=== PATIENT | female | born 1960 | race Two or more races ===

== ENCOUNTER 2020-04-06 07:14 | Inpatient (IN) | payer OTHER ==
[2020-04-01 12:55] VITALS: BMI 23.4
[2020-04-06] MEDS ORDERED: MIDAZOLAM HCL 2 MG/2 ML SINGLE DOSE VIAL ONE ×2 (07:18→09:40)
[2020-04-06] MEDS ORDERED: SODIUM CHLORIDE 0.9% P/F 10 ML VIAL IJ ONE (07:18)
[2020-04-06] MEDS ORDERED: BUPIVACAINE LIPOSOME/PF (EXPAREL) 266 MG/20 ML VIAL ONE (07:18)
[2020-04-06] MEDS ORDERED: BENZOIN/ALOE VERA/STORAX/TOLU 58 ML BOTTLE ONE (07:58)
[2020-04-06] MEDS ORDERED: BUPIVACAINE HCL/PF 0.5% (5MG/ML) 10 ML VIAL ONE (08:54)
[2020-04-06] MEDS ORDERED: PROPOFOL 20 ML ONE ×2 (09:11)
[2020-04-06] MEDS ORDERED: LIDOCAINE HCL/PF 2% SDV 5ML VIAL ONE (11:16)
[2020-04-06] MEDS ORDERED: ceFAZolin SODIUM 1 GM VIAL ONE ×2 (11:16→11:41)
[2020-04-06] MEDS ORDERED: VANCOMYCIN 1,000 MG VIAL (RESTRICTED TO ID ONLY) ONE (11:16)
[2020-04-06] MEDS ORDERED: DEXAMETHASONE SOD PHOSPHATE 4 MG/1 ML VIAL ONE (11:16)
[2020-04-06] MEDS ORDERED: TRANEXAMIC ACID 1000 MG/10 ML VIAL ONE (11:16)
[2020-04-06] MEDS ORDERED: ONDANSETRON 4 MG/2 ML VIAL ONE (11:16)
[2020-04-06] MEDS ORDERED: MAGNESIUM HYDROX 2400MG/30ML ORAL SUSPENSION 30 ML CUP PO PRN (12:07)
[2020-04-06] MEDS ORDERED: MAG HYDROX/AL HYDROX/SIMETH 30 ML UNIT-DOSE CUP PO PRN (12:07)
[2020-04-06] MEDS ORDERED: ONDANSETRON 4 MG/2 ML VIAL IVPUSH PRN (12:07)
[2020-04-06] MEDS ORDERED: LACTATED RINGERS SOLUTION 1,000 ML IV SCH (12:15)
[2020-04-06] MEDS: oxyCODONE HCL 5 MG TABLET PO PRN ×3 (15:39→23:23)
[2020-04-06] MEDS: CEFAZOLIN 2 GM/D5W 2 GM/50 ML ML IVPB SCH ×2 (17:43→23:23)
[2020-04-06] MEDS: ASPIRIN COATED 81 MG TABLET.EC PO SCH (21:13)
[2020-04-06] MEDS: CELECOXIB 200 MG CAPSULE PO SCH (21:13)
[2020-04-06] MEDS: SENNOSIDES/DOCUSATE COMBO (SENNA PLUS) TABLET (UD) PO SCH (21:13)
[2020-04-07] MEDS: oxyCODONE HCL 5 MG TABLET PO PRN ×6 (03:21→20:25)
[2020-04-07] MEDS: CEFAZOLIN 2 GM/D5W 2 GM/50 ML ML IVPB SCH (05:00)
[2020-04-07 08:54] LABS: MCHC 34.1 g/dl (32.0-36.0)
[2020-04-07 08:57] LABS: HEMATOCRIT 33.1 % (32.4-45.2); HEMOGLOBIN 11.3 GM/dl (10.7-15.3); MCH 31.1 pg (25.7-33.7); MEAN CELL VOLUME 91.2 fl (80-96); MEAN PLT VOLUME 8.4 fl (7.5-11.1); PLATELET COUNT 308 K/MM3 (134-434); RBC 3.63 M/mm3 (3.60-5.2); RDW 12.4 % (11.6-15.6)
[2020-04-07 08:58] LABS: CALCIUM 8.7 mg/dl (8.5-10); CREATININE 0.5 mg/dl (0.55-1.3); POTASSIUM 3.6 mmol/L (3.5-5.1)
[2020-04-07] MEDS: PANTOPRAZOLE 40 MG TABLET PO SCH (09:37)
[2020-04-07] MEDS: ASPIRIN COATED 81 MG TABLET.EC PO SCH ×2 (09:37→21:23)
[2020-04-07] MEDS: SENNOSIDES/DOCUSATE COMBO (SENNA PLUS) TABLET (UD) PO SCH ×2 (09:37→21:23)
[2020-04-07] MEDS: ACETAMINOPHEN 325 MG TABLET (FP) PO PRN ×2 (09:37→20:28)
[2020-04-07] MEDS: CELECOXIB 200 MG CAPSULE PO SCH ×2 (09:37→21:23)
[2020-04-08] MEDS: ACETAMINOPHEN 325 MG TABLET (FP) PO PRN (05:50)
[2020-04-08 08:18] LABS: HEMOGLOBIN 10.7 GM/dl (10.7-15.3); MCH 30.9 pg (25.7-33.7); MCHC 33.5 g/dl (32.0-36.0); MEAN CELL VOLUME 92.3 fl (80-96); MEAN PLT VOLUME 8.2 fl (7.5-11.1); PLATELET COUNT 281 K/MM3 (134-434); RBC 3.46 M/mm3 (3.60-5.2); RDW 12.6 % (11.6-15.6); WHITE BLOOD COUNT 7.7 K/mm3 (4.0-10.8)
[2020-04-08] MEDS: oxyCODONE HCL 5 MG TABLET PO PRN ×2 (09:14→12:11)
[2020-04-08] MEDS: PANTOPRAZOLE 40 MG TABLET PO SCH (09:14)
[2020-04-08] MEDS: ASPIRIN COATED 81 MG TABLET.EC PO SCH (09:14)
[2020-04-08] MEDS: CELECOXIB 200 MG CAPSULE PO SCH (09:14)
[2020-04-08] MEDS: SENNOSIDES/DOCUSATE COMBO (SENNA PLUS) TABLET (UD) PO SCH (09:17)
[2020-04-08 10:49] VITALS: BP 111/40; PULSE 82; TEMP 98.3
== END 2020-04-08 13:24 | disposition home or self-care (01) | DRG 302 ==
LOC: FM/S 07:14
PROVIDERS: ADMIT Orthopaedic Surgery Orthopaedic Surgery of the Spine; ATTEND Orthopaedic Surgery Orthopaedic Surgery of the Spine
PROC: 0SRD0J9 Replacement of Left Knee Joint with Synthetic Substitute, Cemented, Open Approach (ICD-10-PCS; principal; 2020-04-06 09:37)
DX: M12.562 Traumatic arthropathy, left knee (principal); K21.9 Gastro-esophageal reflux disease without esophagitis; T14.90XS Injury, unspecified, sequela; X58.XXXS Exposure to other specified factors, sequela
CPT/HCPCS: 36415; 73560-TC-LT-FY; 80048; 85027; 88305-TC; 88311-TC; 94760; 97010-GP; 97116-GP; 97163-GP